=== PATIENT | male | born 1955 | race Caucasian/White ===

== ENCOUNTER 2023-12-28 00:21 | Emergency (ER) | payer OTHER ==
[~2023-12-28] VITALS: Ht 177.8 cm; Wt 58.1 kg
[~2023-12-28 00:21] MED LIST: MULVITMIND PO
[2023-12-28 01:23] VITALS: BP 165/82
[2023-12-28 02:01] LABS: Source, Urine Foley catheter
[2023-12-28 02:19] LABS: Bilirubin, Urine Neg (Neg); Blood, Urine 1+ (Neg); Glucose Qualitative, Urine Neg (Neg); Ketones, Urine Neg (Neg); Leukocyte Esterase, Urine Neg (Neg); Nitrite, Urine Neg (Neg); Protein, Urine Neg (Neg); Urobilinogen, Urine NORM (Normal); pH, Urine 6.5 (5.0-8.0)
[2023-12-28 02:30] LABS: Appearance, Urine Clear (Clear); Color, Urine Pale Yellow (P-Yellow)
[2023-12-28 02:32] LABS: Bacteria Rare /hpf; Red Blood Cells, Urine 0-2 /hpf (0-2); Squamous Epithelial Cells Rare /hpf (Few); White Blood Cells, Urine 0-2 /hpf (0-5)
[2023-12-28] MEDS ORDERED: FLOMAX0.4 MG PO (02:39)
[2023-12-28] MEDS ORDERED: BREYNA 160-4.10.3 GM INH (02:40)
[2023-12-28] MEDS ORDERED: PROAIR RESPICL90 MCG INH (02:40)
[2023-12-28 02:49] LABS: Alanine Aminotransfer (ALT/SGP 26 U/L (12-78); Albumin, Blood 3.3 g/dL (3.4-5.0); Albumin/Globulin Ratio 0.9 (0.8-1.8); Alk Phos 91 U/L (50-136); Anion Gap 6 mmol/L (3-11); Aspartate Aminotrans (AST/SGOT 17 U/L (12-37); Bilirubin, Total 0.3 mg/dL (0.1-1.0); Blood Urea Nitrogen 17 mg/dL (8-24); Bun/Creatinine Ratio 22.5 (12.0-20.0); CO2, Blood 28 mmol/L (21-32); Chloride, Blood 110 mmol/L (98-108); Creatinine, Blood 0.76 mg/dL (0.60-1.20); Globulin, Blood 3.8 g/dL (2.2-4.0); Glomerular Filtration Rate 97 (60-); Glucose, Blood 154 mg/dL (70-99); Potassium, Blood 4.3 mmol/L (3.5-5.5); Sodium, Blood 140 mmol/L (136-145); Total Protein, Blood 7.1 g/dL (6.4-8.2)
== END 2023-12-28 04:02 | disposition home or self-care (01) ==
LOC: ER 00:21
PROVIDERS: Emergency Medicine
DX: Z46.6 Encounter for fitting and adjustment of urinary device (principal); R33.9 Retention of urine, unspecified; R97.20 Elevated prostate specific antigen [PSA]
CPT/HCPCS: 51702; 80053; 81001; 99283-25; G0103

== ENCOUNTER → 2024-01-09 | Outpatient (CLI) | payer OTHER ==
[~2024-01-09] MED LIST changes: +BREYNA 160-4.10.3 GM INH; +FLOMAX0.4 MG PO; +PROAIR RESPICL90 MCG INH
== END | disposition home or self-care (01) ==
LOC: LAB 09:31 → LAB SHORT 09:31
DX: R30.0 Dysuria (principal)
CPT/HCPCS: 87077; 87086; 87186

== ENCOUNTER → 2024-03-20 | Outpatient (CLI) | payer OTHER ==
[~2024-03-20] MED LIST changes: +CEFDINIR300 M4 PO; +LEVFLO500 PO; +VISBIOME 112.51 EACH PO
== END | disposition home or self-care (01) ==
LOC: LAB 15:49 → LAB SHORT 15:49
DX: N39.0 Urinary tract infection, site not specified (principal)
CPT/HCPCS: 87077; 87086; 87186

== ENCOUNTER 2024-03-21 02:55 | Inpatient (IN) | payer OTHER ==
[~2024-03-21] VITALS: Ht 177.8 cm; Wt 58.5 kg
[~2024-03-21 02:55] MED LIST changes: -CEFDINIR300 M4 PO; -LEVFLO500 PO; -VISBIOME 112.51 EACH PO
[2024-03-21 03:38] LABS: Albumin, Blood 2.6 g/dL (3.4-5.0); Albumin/Globulin Ratio 0.6 (0.8-1.8); Bilirubin, Total 0.5 mg/dL (0.1-1.0); Bun/Creatinine Ratio 25.6 (12.0-20.0); Calcium, Blood 8.7 mg/dL (8.5-10.1); Creatinine, Blood 1.25 mg/dL (0.60-1.20); Total Protein, Blood 6.6 g/dL (6.4-8.2)
[2024-03-21 03:40] LABS: Hematocrit 36.1 % (37.0-53.0); Hemoglobin 12.5 g/dL (13.5-17.5); Mean Corpuscular HGB 32.9 pg (26.0-34.0); Mean Corpuscular HGB Conc 34.6 g/dL (31.5-36.5); Mean Corpuscular Volume 95 fL (80-100); Mean Platelet Volume 12.9 fL (9.1-12.4); Platelet Count 185 K/mm3 (150-400); RDW Standard Deviation 48.9 fL (35.1-46.3); White Blood Cell Count 20.29 K/mm3 (4.00-11.30)
[2024-03-21 03:57] LABS: BAND PERCENT MAN 8 % (0-8); BASOPHILS PERCENT MAN 1 % (0-2); EOSINOPHILS PERCENT MAN 0 % (0-6); LYMPHOCYTES PERCENT MAN 3 % (21-46); MONOCYTES ABSOLUTE MAN 0.81 K/mm3 (0.16-1.47); MONOCYTES PERCENT MAN 4 % (4-13); NEUTROPHILS ABSOLUTE MAN 18.66 K/mm3 (1.96-9.15); SEG NEUTROPHILS PERCENT MAN 84 % (41-73); TOTAL CELLS COUNTED 100
[2024-03-21] MEDS ORDERED: NS 1,000 ML IV SCH ×2 (04:20→04:30)
[2024-03-21] MEDS ORDERED: CefTRIAXone Sodium 1,000 MG in NS 50 ML IV ONE (04:30)
[2024-03-21 04:39] LABS: Source, Urine Foley catheter
[2024-03-21 05:04] LABS: Appearance, Urine Hazy (Clear); Bilirubin, Urine Neg (Neg); Blood, Urine 5+ (Neg); Color, Urine Yellow (P-Yellow); Glucose Qualitative, Urine Neg (Neg); Ketones, Urine Neg (Neg); Leukocyte Esterase, Urine 3+ (Neg); Nitrite, Urine Pos (Neg); Protein, Urine 3+ (Neg); Urobilinogen, Urine NORM (Normal)
[2024-03-21 05:16] LABS: Bacteria Many /hpf; Squamous Epithelial Cells Mod /hpf (Few); White Blood Cells, Urine TNTC /hpf (0-5)
[2024-03-21 05:17] LABS: Yeast/Fungi Urine Few /hpf
[2024-03-21] MEDS ORDERED: CefTRIAXone Sodium 1,000 MG in NS 100 ML IV ONE (05:35)
[2024-03-21 06:04] VITALS: BP 118/65
--- NOTE | 2024-03-21 06:24 | NUR ---
ARRIVAL TO UNIT PT ARRIVED TO UNIT VIA GURNEY FROM THE ER. PT ABLE TO TRANSFER OVER TO THE BED WITH 1P SBA. PT ON 2L NC TO MAINTAIN SATS ABOVE 92%. LUNG SOUNDS ARE DIMISHED T/O. PT HAS STRONG PULSES IN ALL EXT'S. INDWELING CHRONIC RUSSELL IN. DRAINING YELLOW URINE. NOT CHNAGED IN THE ER, ORDERED BY DR. URSSELL CHANGED ON February BY PT'S UROLOGIST. VSS. NO OTHER CONCERNS AT THIS TIME, CALL LIGHT WITHIN REACH
[2024-03-21 07:09] VITALS: BP 111/70
--- NOTE | 2024-03-21 07:43 | NUR ---
NURSING SURG DAYSHIFT: Assumed care of pt at approx 0700. A/O, very pleasant, cooperative w/care, s/o at bedside. Skin fragile/dry, no breakdown noted. Mild general weakness r/t current illness. Able to ambulate independently, only requiring assistance for line management. HRR, no c/o CP/pressure, SBP 111, HR 75, no noted edema. L/S fairly cta t/o w/fine crackles to RLL, denies dyspnea, O2 sat 100% on 2L which pt is using for comfort, occ dry/[employer] cough. Abd SNT, BT+, chronic FC w/leg bag in place. PIV x1, NS bolus infusing at initial assessment. No s/s of acute distress this a.m. Discussed plan of care w/pt, reviewed labs and discussed results, answered questions. Edcuated regarding deep breathing exercises, pt demonstrated understanding. Pt and s/o deny any current needs or questions regarding care plan. PIV s/l after IVF bolus completion. Call light in reach, awaiting rounding from PMD, cont to monitor for changes.
[2024-03-21] MEDS ORDERED: Lactobacil 2-S.Thermo-Bifido 1 1 Cap PO SCH (09:00)
[2024-03-21 14:37] VITALS: BP 133/75
[2024-03-21] MEDS ORDERED: Albuterol HFA200 ACT/6.7 GM INH INH PRN (16:15)
[2024-03-21] MEDS ORDERED: Mometasone/Formoterol MDI 200/5 mcg 13 GM INH SCH (16:15)
--- NOTE | 2024-03-21 16:46 | NUR ---
NURSING SURG DAYSHIFT SUMMARY: Pt has done well t/o shift. S/O remained at bedside t/o majority of the day. Seen by PMD, new d/o received. Urine remains andry and cloudy, output consistent t/o day. Currently OOB ambulating halls w/o difficulty. Verbalized understanding of care plan. No s/s of acute distress at this time, monitor until rpt is given to NOC RN.
[2024-03-21 19:33] VITALS: BP 139/84
--- NOTE | 2024-03-21 19:54 | NUR ---
Pt had an elevated temp Rn notified.
[2024-03-21] MEDS ORDERED: Acetaminophen 500 MG Tab PO PRN (20:30)
--- NOTE | 2024-03-21 20:30 | NUR ---
AUTOMOTIVE MANAGER FOR THIS PT NOTED NO TYLENOL ORDERED AND REQUESTED TYLENOL FOR FEVER/PAIN.I CALLED AND REQUESTED PT CURRENT TEMP 100.6 ORDER RECEIVED.
[2024-03-21] MEDS ORDERED: Tamsulosin HCl 0.4 MG Cap PO SCH (21:00)
[2024-03-22 04:05] VITALS: BP 146/90
--- NOTE | 2024-03-22 05:05 | NUR ---
SHIFT SUMMARY PT ABLE TO REST DURING THE SHIFT. PT STATES PAIN IS MANAGED. TOLERATING PO INTAKE. CHRONIC RUSSELL IN PLACE DRAINING INTO LEG BAG, PATRIC IN COLOR. PT IND IN THE ROOM. VSS. NO OTHER CONCERNS AT THIS TIME, CALL LIGHT WITHIN REACH
[2024-03-22 05:25] LABS: Hematocrit 35.6 % (37.0-53.0); Mean Corpuscular HGB 32.5 pg (26.0-34.0); Mean Corpuscular HGB Conc 33.7 g/dL (31.5-36.5); Mean Corpuscular Volume 97 fL (80-100); Mean Platelet Volume 12.9 fL (9.1-12.4); Platelet Count 149 K/mm3 (150-400); RDW Coefficient Variation 14.5 % (11.7-14.2); Red Blood Cell Count 3.69 M/mm3 (4.30-5.90); White Blood Cell Count 10.81 K/mm3 (4.00-11.30)
[2024-03-22 05:53] LABS: Bun/Creatinine Ratio 25.2 (12.0-20.0); Calcium, Blood 8.3 mg/dL (8.5-10.1); Creatinine, Blood 0.91 mg/dL (0.60-1.20); Potassium, Blood 3.9 mmol/L (3.5-5.5)
[2024-03-22] MEDS ORDERED: CefTRIAXone Sodium 2,000 MG in NS 100 ML IV SCH (06:00)
[2024-03-22 07:06] VITALS: BP 142/80
[2024-03-22] MEDS ORDERED: Enoxaparin 40 MG/0.4 ML SYR SC SCH (09:00)
[2024-03-22] MEDS ORDERED: CEFDINIR300 M4 PO (10:38)
[2024-03-22 16:02] VITALS: BP 130/85
--- NOTE | 2024-03-22 17:37 | NUR ---
SHIFT SUMMARY PT A&Ox4, CALLS AND COMMUNICATES NEEDS APPROPRIATELY. BP STABLE, NO TELE, DENIES CP/PRESSURE. SpO2> 92% RA, DENIES SOB. IND IN ROOM, AMBULATING AROUND SILVA. NO C/O PAIN. PT EXPRESSED FEELING DEPRESSED ABOUT DISCUSSION WITH PROVIDER, THIS RN TALKED THROUGH PTs CONCERNS. NO OTHER EVENTS, WILL REPORT TO ONCOMING RN.
[2024-03-22 19:24] VITALS: BP 160/85
[2024-03-23 04:35] VITALS: BP 123/67
--- NOTE | 2024-03-23 05:32 | NUR ---
SHIFT SUMMARY PT SLEPT MOST OF THE NIGHT. PT EMPTYING OWN RUSSELL BAG. URINE IS PATRIC IN COLOR. PT TOLERATING PO INTAKE. PT SPIKED A FEVER OF 103.3 THIS AM. PT GIVEN TYLENOL AND TEMP CAME DOWN TO 99.1. VSS. NO OTHER CONCERNS AT THIS TIME, CALL LIGHT WITHIN REACH
[2024-03-23 07:31] VITALS: BP 110/70
[2024-03-23] MEDS ORDERED: VISBIOME 112.51 EACH PO (11:24)
[2024-03-23 13:27] LABS: Hematocrit 34.2 % (37.0-53.0); Hemoglobin 12.1 g/dL (13.5-17.5); Mean Corpuscular HGB 32.8 pg (26.0-34.0); Mean Corpuscular HGB Conc 35.4 g/dL (31.5-36.5); Mean Corpuscular Volume 93 fL (80-100); Mean Platelet Volume 12.8 fL (9.1-12.4); Platelet Count 168 K/mm3 (150-400); RDW Standard Deviation 47.9 fL (35.1-46.3); Red Blood Cell Count 3.69 M/mm3 (4.30-5.90)
[2024-03-23 13:50] LABS: BAND PERCENT MAN 5 % (0-8); BASOPHILS PERCENT MAN 0 % (0-2); EOSINOPHILS PERCENT MAN 0 % (0-6); LYMPHOCYTES PERCENT MAN 10 % (21-46); MONOCYTES PERCENT MAN 5 % (4-13); SEG NEUTROPHILS PERCENT MAN 80 % (41-73); TOTAL CELLS COUNTED 100
[2024-03-23 13:51] LABS: Anion Gap 13 mmol/L (3-11); Blood Urea Nitrogen 19 mg/dL (8-24); Bun/Creatinine Ratio 21.1 (12.0-20.0); CO2, Blood 20 mmol/L (21-32); Chloride, Blood 107 mmol/L (98-108); Glomerular Filtration Rate 92 (60-); Glucose, Blood 103 mg/dL (70-99); LYMPHOCYTES ABSOLUTE MAN 1.93 K/mm3 (0.84-5.20); MONOCYTES ABSOLUTE MAN 0.96 K/mm3 (0.16-1.47); NEUTROPHILS ABSOLUTE MAN 16.47 K/mm3 (1.96-9.15); Potassium, Blood 3.6 mmol/L (3.5-5.5); Sodium, Blood 136 mmol/L (136-145); White Blood Cell Count 19.38 K/mm3 (4.00-11.30)
[2024-03-23 15:30] VITALS: BP 112/69
--- NOTE | 2024-03-23 17:11 | NUR ---
SUMMARY PT HAS BEEN FEBRILE T/O SHIFT. WBC INCREASED FROM YESTERDAY. PT REPORTS INTERMITTENT "SPASMS" THAT CAUSE URINE W/SOME BLOOD TO LEAK AROUND CATHETER. REPORTED "PUS" COMING FROM TIP OF PENIS. SENT SWAB PER ORDERS. PT APPEARS DEPRESSED/FRUSTRATED AT TIMES. PLEASANT AND COOPERATIVE. INDEPENDENT IN ROOM. AMBULATED OUTSIDE TODAY. SO BEDSIDE.
[2024-03-23 19:41] VITALS: BP 127/71
[2024-03-23] MEDS ORDERED: Ciprofloxacin 400MG/D5 200ML 200 ML IV SCH (20:00)
[2024-03-24 04:20] VITALS: BP 134/74
[2024-03-24 05:14] LABS: BASOPHILS ABSOLUTE AUTO 0.06 K/mm3 (0.00-0.23); BASOPHILS PERCENT AUTO 0 % (0-2); EOSINOPHILS ABSOLUTE AUTO 0.08 K/mm3 (0.00-0.68); EOSINOPHILS PERCENT AUTO 1 % (0-6); Hematocrit 33.7 % (37.0-53.0); Hemoglobin 11.6 g/dL (13.5-17.5); IMMATURE GRAN ABSOLUTE AUTO 0.17 K/mm3 (0.00-0.10); IMMATURE GRAN PERCENT AUTO 1 % (0-1); LYMPHOCYTES ABSOLUTE AUTO 1.95 K/mm3 (0.84-5.20); LYMPHOCYTES PERCENT AUTO 12 % (21-46); MONOCYTES ABSOLUTE AUTO 1.67 K/mm3 (0.16-1.47); MONOCYTES PERCENT AUTO 10 % (4-13); Mean Corpuscular HGB 32.5 pg (26.0-34.0); Mean Corpuscular HGB Conc 34.4 g/dL (31.5-36.5); Mean Corpuscular Volume 94 fL (80-100); NEUTROPHILS ABSOLUTE AUTO 12.46 K/mm3 (1.96-9.15); NEUTROPHILS PERCENT AUTO 76 % (41-73); Platelet Count 165 K/mm3 (150-400); RDW Coefficient Variation 14.1 % (11.7-14.2); RDW Standard Deviation 49.1 fL (35.1-46.3); Red Blood Cell Count 3.57 M/mm3 (4.30-5.90); White Blood Cell Count 16.39 K/mm3 (4.00-11.30)
[2024-03-24 05:24] LABS: Mean Platelet Volume 13.6 fL (9.1-12.4)
[2024-03-24 05:51] LABS: Bun/Creatinine Ratio 15.1 (12.0-20.0); Calcium, Blood 8.8 mg/dL (8.5-10.1); Creatinine, Blood 0.86 mg/dL (0.60-1.20); Potassium, Blood 3.5 mmol/L (3.5-5.5)
--- NOTE | 2024-03-24 05:55 | NUR ---
SHIFT SUMMARY AOX4. VSS. AFEBRILE T/O SHIFT. DENIES N/V. REPORTS INFREQUENT SHARP SPASM PAIN @[facility] WHERE RUSSELL IS. RECIEVING ABX FOR UTI. PENDING BLD CX. RUSSELL DRAINING PATRIC URINE W/OCC SM CLOTS. CALL LIGHT IN REACH. WILL MONITOR.
[2024-03-24 07:26] VITALS: BP 148/79
[2024-03-24] MEDS ORDERED: CefTRIAXone Sodium 1,000 MG in NS 100 ML IV SCH (09:00)
[2024-03-24] MEDS ORDERED: LEVFLO500 PO (11:56)
--- NOTE | 2024-03-24 14:29 | NUR ---
DISCHARGE SUMMARY S/P URINARY RETENTION WITH UTI, A/OX4, VSS, TOLERATING PO, AMBULATING INDEPENDENTLY, RUSSELL IN PLACE. IV ABX GIVEN THIS AM. DISCUSSSED DISCHARGE INFORMATION WITH HIM INCLUDING HOME CARE, MEDICATIONS, AND FOLLOW UP APPOINTMENTS WITH PCP AND UROLOGY. NO QUESTIONOS AT THIS TIME, IV ACCESS REMOVED, PT LEFT AMULATORY TO PRIVATE AUTOTO GO HOME.
== END 2024-03-24 13:00 | disposition home or self-care (01) | DRG 698 ==
LOC: ER 02:55 → ERHOLD 02:56 → SURS 02:56
PROVIDERS: Emergency Medicine; Internal Medicine; ADMIT Internal Medicine
DX: T83.511A Infection and inflammatory reaction due to indwelling urethral catheter, initial encounter (principal); A41.51 Sepsis due to Escherichia coli [E. coli]; N17.9 Acute kidney failure, unspecified; Y84.6 Urinary catheterization as the cause of abnormal reaction of the patient, or of later complication, without mention of misadventure at the time of the procedure; J45.909 Unspecified asthma, uncomplicated; Z85.46 Personal history of malignant neoplasm of prostate
CPT/HCPCS: 36415; 51702; 74177; 80048; 80053; 81001; 83605; 84153; 85025; 85027; 85651; 86140; 87040; 87070; 87077; 87086; 87186; 87205; 93005; 93010; 94640; 94664; 94760; 96361; 96365; 96372; 96374; 96375; 96376; 99285-25; A9270; G0378; J0696; J0744; J1650; J7030; Q9967

== ENCOUNTER → 2024-04-03 | Outpatient (CLI) | payer OTHER ==
[~2024-04-03] MED LIST changes: +CEFDINIR300 M4 PO; +LEVFLO500 PO; +VISBIOME 112.51 EACH PO
== END ==
LOC: LAB 17:49 → LAB SHORT 17:49
DX: N39.0 Urinary tract infection, site not specified (principal)
CPT/HCPCS: 87086

== ENCOUNTER 2024-09-30 15:27 | Emergency (ER) | payer OTHER ==
[~2024-09-30] VITALS: Ht 177.8 cm; Wt 59.0 kg
[2024-09-30 16:16] LABS: RDW Coefficient Variation 13.6 % (11.7-14.2)
[2024-09-30 16:22] LABS: Hematocrit 43.7 % (37.0-53.0); Hemoglobin 14.9 g/dL (13.5-17.5); Mean Corpuscular HGB 33.1 pg (26.0-34.0); Mean Corpuscular HGB Conc 34.1 g/dL (31.5-36.5); Mean Corpuscular Volume 97 fL (80-100); Platelet Count 273 K/mm3 (150-400)
[2024-09-30 16:31] LABS: White Blood Cell Count 17.36 K/mm3 (4.00-11.30)
[2024-09-30 16:38] LABS: Albumin, Blood 3.8 g/dL (3.4-5.0); Albumin/Globulin Ratio 0.9 (0.8-1.8); Bilirubin, Total 0.6 mg/dL (0.1-1.0); Bun/Creatinine Ratio 11.8 (12.0-20.0); Calcium, Blood 9.4 mg/dL (8.5-10.1); Creatinine, Blood 1.02 mg/dL (0.60-1.20); Globulin, Blood 4.2 g/dL (2.2-4.0); Potassium, Blood 4.4 mmol/L (3.5-5.5)
[2024-09-30 16:52] LABS: BASOPHILS ABSOLUTE MAN 0.17 K/mm3 (0.00-0.23); BASOPHILS PERCENT MAN 1 % (0-2); EOSINOPHILS ABSOLUTE MAN 0.17 K/mm3 (0.00-0.68); EOSINOPHILS PERCENT MAN 1 % (0-6); LYMPHOCYTES ABSOLUTE MAN 3.29 K/mm3 (0.84-5.20); LYMPHOCYTES PERCENT MAN 19 % (21-46); MONOCYTES ABSOLUTE MAN 0.86 K/mm3 (0.16-1.47); MONOCYTES PERCENT MAN 5 % (4-13); NEUTROPHILS ABSOLUTE MAN 12.84 K/mm3 (1.96-9.15); SEG NEUTROPHILS PERCENT MAN 74 % (41-73); TOTAL CELLS COUNTED 100
[2024-09-30] MEDS ORDERED: LOSARTAN POTASS25 M2 PO (18:11)
[2024-09-30 18:54] LABS: Source, Urine Clean Catch
[2024-09-30 19:17] LABS: Appearance, Urine Clear (Clear); Bilirubin, Urine Neg (Neg); Blood, Urine Neg (Neg); Color, Urine Yellow (P-Yellow); Glucose Qualitative, Urine Neg (Neg); Ketones, Urine 1+ (Neg); Leukocyte Esterase, Urine Neg (Neg); Nitrite, Urine Neg (Neg); Protein, Urine Neg (Neg); Urobilinogen, Urine NORM (Normal)
[2024-09-30] MEDS ORDERED: FentaNYL Citrate 50 MCG/ML 2 ML Injection IV ONE (19:55)
[2024-09-30 20:30] VITALS: BP 130/70
== END 2024-09-30 22:09 | disposition home or self-care (01) ==
LOC: ER 15:27
PROVIDERS: Student in an Organized Health Care Education/Training Program
DX: R42 Dizziness and giddiness (principal); I10 Essential (primary) hypertension; G40.909 Epilepsy, unspecified, not intractable, without status epilepticus; Z88.8 Allergy status to other drugs, medicaments and biological substances; Z88.5 Allergy status to narcotic agent; Z79.899 Other long term (current) drug therapy
CPT/HCPCS: 80053; 81003; 83690; 84484; 85025; 93005; 93010; 96374; 99284-25; J3010